=== PATIENT | female | born 1975 | race Caucasian/White ===

== ENCOUNTER 2018-02-05 18:16 | Inpatient (IN) | payer OTHER ==
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
[2018-02-05] MEDS ORDERED: ceFAZolin 1 GM in Premix Bag 1 BAG IV ONE (18:21)
[2018-02-05] MEDS ORDERED: Diphtheria,Pertussis(Acell),Tetanus Vaccine 0.5 ML Syringe IM ONE (18:21)
[2018-02-05] MEDS ORDERED: Iopamidol 755 MG/ML 200 ML Multipack Bottle IVPUSH ONE (18:31)
[2018-02-05 18:44] LABS: CHLORIDE,CL 103 mmol/L (98-107); SODIUM,NA 137 mmol/L (136-145)
[2018-02-05] MEDS ORDERED: Lactated Ringers 1,000 ML IV ONE (18:50)
[2018-02-05] MEDS ORDERED: Ketorolac 30 MG/ML SDV IVPUSH ONE (19:00)
[2018-02-05] MEDS ORDERED: Ondansetron 4 MG/2 ML SDV IVPUSH ONE (19:15)
[2018-02-05] MEDS ORDERED: Diazepam 2 MG Tab PO ONE (19:31)
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
[2018-02-05] MEDS ORDERED: traMADol 50 MG Tab PO PRN (21:21)
[2018-02-05] MEDS: Morphine 2 MG/ML Syringe IVPUSH PRN (21:38)
[2018-02-05] MEDS: Lactated Ringers 1,000 ML IV SCH (21:50)
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
[2018-02-06] MEDS: Morphine 2 MG/ML Syringe IVPUSH PRN ×4 (00:08→11:22)
[2018-02-06] MEDS: Lactated Ringers 1,000 ML IV SCH (09:22)
--- NOTE | 2018-02-06 10:06 | PCM.SURGPN ---
- General Info Date of Service: 02/06/18 Functional Status: Reports: Pain Controlled (contact psych; pt wants to leave [facility], was smile at first, became biligerent when told about transfer to psych) - Patient Data Vitals - Most Recent: Last Vital Signs Temp 98.1 F 02/06/18 08:00 Pulse 79 02/06/18 07:00 Resp 12 02/06/18 07:00 BP 108/55 L 02/06/18 07:00 Pulse Ox 99 02/06/18 07:00 Weight - Most Recent: 155 lb I&O - Last 24 Hours: Intake & Output 02/05/18 02/06/18 02/06/18 22:59 06:59 14:59 Intake Total 1050 1704 500 Output Total 400 Balance 1050 1304 500 Lab Results Last 24 Hrs: Laboratory Results - last 24 hr 02/05/18 02/05/18 02/05/18 Range/Units 18:11 18:11 22:38 WBC 7.11 (4.0-11.0) K/uL RBC 4.78 (4.30-5.90) M/uL Hgb 15.0 (12.0-16.0) g/dL Hct 42.0 (36.0-46.0) % MCV 87.9 (80.0-98.0) fL MCH 31.4 (27.0-32.0) pg MCHC 35.7 (31.0-37.0) g/dL RDW Std Deviation 41.4 (28.0-62.0) fl RDW Coeff of Candice 13 (11.0-15.0) % Plt Count 282 (150-400) K/uL MPV 10.00 (7.40-12.00) fL Neut % (Auto) 46.1 L (48.0-80.0) % Lymph % (Auto) 39.9 (16.0-40.0) % [place] % (Auto) 13.6 (0.0-15.0) % Eos % (Auto) 0.1 (0.0-7.0) % Baso % (Auto) 0.3 (0.0-1.5) % Neut # (Auto) 3.3 (1.4-5.7) K/uL Lymph # (Auto) 2.8 H (0.6-2.4) K/uL [place] # (Auto) 1.0 H (0.0-0.8) K/uL Eos # (Auto) 0.0 (0.0-0.7) K/uL Baso # (Auto) 0.0 (0.0-0.1) K/uL Nucleated RBC % 0.0 /100WBC Nucleated RBCs # 0 K/uL Sodium 137 (136-145) mmol/L Potassium 3.7 (3.5-5.1) mmol/L Chloride 103 (98-107) mmol/L Carbon Dioxide 24.7 (21.0-32.0) mmol/L BUN 12 (7.0-18.0) mg/dL Creatinine 1.1 H (0.6-1.0) mg/dL Est Cr Clr Drug Dosing 63.64 mL/min Estimated GFR (MDRD) 55.0 ml/min Glucose 127 H (74-106) mg/dL Calcium 9.5 (8.5-10.1) mg/dL Total Bilirubin 0.7 (0.2-1.0) mg/dL AST 21 (15-37) IU/L ALT 20 (14-63) IU/L Alkaline Phosphatase 63 (46-116) U/L Total Protein 7.8 (6.4-8.2) g/dL Albumin 4.2 (3.4-5.0) g/dL Globulin 3.6 H (2.0-3.5) g/dL Albumin/Globulin Ratio 1.2 L (1.3-2.8) Urine Color YELLOW Urine Appearance CLEAR Urine pH 5.5 (5.0-8.0) Ur Specific [place] 1.025 (1.001-1.035) Urine Protein NEGATIVE (NEGATIVE) mg/dL Urine Glucose (UA) NEGATIVE (NEGATIVE) mg/dL Urine Ketones NEGATIVE (NEGATIVE) mg/dL Urine Occult Blood TRACE-INTACT (NEGATIVE) Urine Nitrite NEGATIVE (NEGATIVE) Urine Bilirubin NEGATIVE (NEGATIVE) Urine Urobilinogen 0.2 (<2.0) EU/dL Ur Leukocyte Esterase NEGATIVE (NEGATIVE) Urine RBC 0-2 (0-2/HPF) Urine WBC 0-3 (0-5/HPF) Ur Epithelial Cells FEW (NONE-FEW) Urine Bacteria FEW (NEGATIVE) Fine Granular Casts 0-1 (NEGATIVE) Urine Mucus LIGHT (NONE-MOD) Urine HCG, Qual (NEGATIVE) Urine Opiates Screen (NEGATIVE) Ur Oxycodone Screen (NEGATIVE) Urine Methadone Screen (NEGATIVE) Ur Barbiturates Screen (NEGATIVE) Ur Phencyclidine Scrn (NEGATIVE) Ur Amphetamine Screen (NEGATIVE) U Methamphetamines Scrn (NEGATIVE) U Benzodiazepines Scrn (NEGATIVE) U Cocaine Metab Screen (NEGATIVE) U Marijuana (THC) Screen (NEGATIVE) Ethyl Alcohol < 3.0 mg/dL 02/05/18 02/05/18 Range/Units 22:38 22:38 WBC (4.0-11.0) K/uL RBC (4.30-5.90) M/uL Hgb (12.0-16.0) g/dL Hct (36.0-46.0) % MCV (80.0-98.0) fL MCH (27.0-32.0) pg MCHC (31.0-37.0) g/dL RDW Std Deviation (28.0-62.0) fl RDW Coeff of Candice (11.0-15.0) % Plt Count (150-400) K/uL MPV (7.40-12.00) fL Neut % (Auto) (48.0-80.0) % Lymph % (Auto) (16.0-40.0) % [place] % (Auto) (0.0-15.0) % Eos % (Auto) (0.0-7.0) % Baso % (Auto) (0.0-1.5) % Neut # (Auto) (1.4-5.7) K/uL Lymph # (Auto) (0.6-2.4) K/uL [place] # (Auto) (0.0-0.8) K/uL Eos # (Auto) (0.0-0.7) K/uL Baso # (Auto) (0.0-0.1) K/uL Nucleated RBC % /100WBC Nucleated RBCs # K/uL Sodium (136-145) mmol/L Potassium (3.5-5.1) mmol/L Chloride (98-107) mmol/L Carbon Dioxide (21.0-32.0) mmol/L BUN (7.0-18.0) mg/dL Creatinine (0.6-1.0) mg/dL Est Cr Clr Drug Dosing mL/min Estimated GFR (MDRD) ml/min Glucose (74-106) mg/dL Calcium (8.5-10.1) mg/dL Total Bilirubin (0.2-1.0) mg/dL AST (15-37) IU/L ALT (14-63) IU/L Alkaline Phosphatase (46-116) U/L Total Protein (6.4-8.2) g/dL Albumin (3.4-5.0) g/dL Globulin (2.0-3.5) g/dL Albumin/Globulin Ratio (1.3-2.8) Urine Color Urine Appearance Urine pH (5.0-8.0) Ur Specific [place] (1.001-1.035) Urine Protein (NEGATIVE) mg/dL Urine Glucose (UA) (NEGATIVE) mg/dL Urine Ketones (NEGATIVE) mg/dL Urine Occult Blood (NEGATIVE) Urine Nitrite (NEGATIVE) Urine Bilirubin (NEGATIVE) Urine Urobilinogen (<2.0) EU/dL Ur Leukocyte Esterase (NEGATIVE) Urine RBC (0-2/HPF) Urine WBC (0-5/HPF) Ur Epithelial Cells (NONE-FEW) Urine Bacteria (NEGATIVE) Fine Granular Casts (NEGATIVE) Urine Mucus (NONE-MOD) Urine HCG, Qual NEGATIVE (NEGATIVE) Urine Opiates Screen POSITIVE (NEGATIVE) Ur Oxycodone Screen NEGATIVE (NEGATIVE) Urine Methadone Screen NEGATIVE (NEGATIVE) Ur Barbiturates Screen NEGATIVE (NEGATIVE) Ur Phencyclidine Scrn NEGATIVE (NEGATIVE) Ur Amphetamine Screen NEGATIVE (NEGATIVE) U Methamphetamines Scrn POSITIVE (NEGATIVE) U Benzodiazepines Scrn POSITIVE (NEGATIVE) U Cocaine Metab Screen NEGATIVE (NEGATIVE) U Marijuana (THC) Screen POSITIVE (NEGATIVE) Ethyl Alcohol mg/dL Med Orders - Current: Current Medications Lactated Ringer's (Ringers, Lactated) 1,000 mls @ 100 mls/hr IV CONTINUOUS JENNIFER Last Admin: 02/06/18 09:22 Dose: 100 mls/hr Morphine Sulfate (Morphine) 2 mg IVPUSH Q2H PRN PRN Reason: pain Last Admin: 02/06/18 08:20 Dose: 2 mg Tramadol HCl (Ultram) 50 mg PO Q8H PRN PRN Reason: Pain Discontinued Medications Diazepam (Valium) 2 mg PO ONETIME ONE Stop: 02/05/18 19:32 Last Admin: 02/05/18 19:37 Dose: 2 mg Diphtheria/Tetanus/Acell Pertussis (Adacel) 0.5 ml IM .ONCE ONE Stop: 02/05/18 18:22 Last Admin: 02/05/18 18:51 Dose: 0.5 ml Cefazolin Sodium/Dextrose 1 gm (/ Premix) 50 mls @ 100 mls/hr IV ONETIME ONE Stop: 02/05/18 18:50 Last Admin: 02/05/18 18:51 Dose: 100 mls/hr Lactated Ringer's (Ringers, Lactated) 1,000 mls @ 999 mls/hr IV .BOLUS ONE Stop: 02/05/18 19:50 Last Admin: 02/05/18 18:52 Dose: 999 mls/hr Iopamidol (Isovue Multipack-370 (76%)) 66 ml IVPUSH ONETIME ONE Stop: 02/05/18 18:32 Last Admin: 02/05/18 19:09 Dose: 66 ml Ketorolac Tromethamine (Toradol) 30 mg IVPUSH ONETIME ONE Stop: 02/05/18 19:01 Last Admin: 02/05/18 19:09 Dose: 30 mg Ondansetron HCl (Zofran) 4 mg IVPUSH ONETIME ONE Stop: 02/05/18 19:16 Last Admin: 02/05/18 19:19 Dose: 4 mg - Exam GI/Abdominal Exam: Soft, Non-Tender - Problem List Review Problem List Initiated/Reviewed/Updated: Yes - My Orders Last 24 Hours: Active Orders 24 hr Category Date Time Status Admission Status [Patient Status] [ADT] Routine ADT 02/05/18 19:54 Active EKG 12 Lead [EKG Documentation Completion] [RC] STAT Care 02/05/18 18:19 Active Consult to Physician [CONS] Routine Cons 02/05/18 19:56 Active Consult to Physician [CONS] Stat Cons 02/05/18 20:08 Active Clear Liquid Diet [DIET] Diet 02/06/18 Breakfast Active Abdomen Pelvis w Cont [CT] Stat Exams 02/05/18 18:19 Taken Chest 1V Frontal [CR] Stat Exams 02/05/18 18:19 Taken DRUG SCREEN, URINE [URCHEM] Stat Lab 02/05/18 22:38 Ordered HCG QUALITATIVE,URINE [URCHEM] Stat Lab 02/05/18 22:38 Ordered UA W/MICROSCOPIC [URIN] Stat Lab 02/05/18 22:38 Ordered Lactated Ringers [Ringers, Lactated] 1,000 ml Med 02/05/18 21:45 Active IV CONTINUOUS Morphine Med 02/05/18 21:27 Active 2 mg IVPUSH Q2H PRN traMADol [Ultram] Med 02/05/18 21:21 Active 50 mg PO Q8H PRN One To One Therapy [BH] Stat Oth 02/05/18 20:16 Ordered Medication Orders Lactated Ringer's (Ringers, Lactated) 1,000 mls @ 100 mls/hr IV CONTINUOUS JENNIFER Last Admin: 02/06/18 09:22 Dose: 100 mls/hr Infusion: 02/06/18 07:50 Dose: 100 mls/hr Admin: 02/05/18 21:50 Dose: 100 mls/hr Morphine Sulfate (Morphine) 2 mg IVPUSH Q2H PRN PRN Reason: pain Last Admin: 02/06/18 08:20 Dose: 2 mg Admin: 02/06/18 05:00 Dose: 2 mg Admin: 02/06/18 00:08 Dose: 2 mg Admin: 02/05/18 21:38 Dose: 2 mg Tramadol HCl (Ultram) 50 mg PO Q8H PRN PRN Reason: Pain - Assessment Assessment (Free Text/Narrative):: doing well from surg stand point, discuss transfer to psych; thanks for hospitalist input - Plan Plan (Free Text/Narrative):: doing well from surg stand point, discuss transfer to psych; thanks for hospitalist input
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
== END 2018-02-06 12:30 | disposition left against medical advice (07) | DRG 605 ==
LOC: MW.ED 18:16 → MW.ICU 19:30 → OBSVTOIN 19:54 → MW.ICU 19:55
PROVIDERS: ADMIT Surgery; ATTEND Surgery
DX: S31.119A Laceration without foreign body of abdominal wall, unspecified quadrant without penetration into peritoneal cavity, initial encounter (principal); X78.1XXA Intentional self-harm by knife, initial encounter; F43.10 Post-traumatic stress disorder, unspecified; G89.29 Other chronic pain; F41.9 Anxiety disorder, unspecified; F32.9 Major depressive disorder, single episode, unspecified; F12.10 Cannabis abuse, uncomplicated; K31.84 Gastroparesis; M19.90 Unspecified osteoarthritis, unspecified site; E03.9 Hypothyroidism, unspecified; G43.909 Migraine, unspecified, not intractable, without status migrainosus; F17.200 Nicotine dependence, unspecified, uncomplicated; Z87.820 Personal history of traumatic brain injury; Z91.19 Patient's noncompliance with other medical treatment and regimen; Z79.899 Other long term (current) drug therapy; Z90.49 Acquired absence of other specified parts of digestive tract
CPT/HCPCS: 36415; 71045; 71045-26; 74177; 74177-26; 80053; 80305-QW; 81001; 81025; 85025; 90471; 90715; 93005; 96365; 96368; 96375; 99285-25; A9270-GY; G0390; G0480; J0690; J1885; J2270; J2405; J7120; Q9967

== ENCOUNTER 2018-02-14 15:11 | Emergency (ER) | payer OTHER ==
[2018-02-14] MEDS ORDERED: Sodium Chloride 0.9% 2.5 ML Syringe FLUSH PRN (15:15)
[2018-02-14] MEDS ORDERED: Sodium Chloride 0.9% 10 ML Syringe FLUSH PRN (15:15)
[2018-02-14] MEDS ORDERED: Ketorolac 30 MG/ML SDV IVPUSH ONE (16:06)
[2018-02-14] MEDS ORDERED: Sodium Chloride 0.9% 1,000 ML IV ONE ×2 (16:06→16:39)
[2018-02-14] MEDS ORDERED: cefTRIAXone 1 GM in Premix Bag 1 BAG IV ONE (16:21)
[2018-02-14] MEDS ORDERED: Potassium Chloride 20 MEQ Tab.ER PO ONE (16:22)
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
[2018-02-14] MEDS ORDERED: Ondansetron 4 MG/2 ML SDV IVPUSH ONE (16:40)
[2018-02-14] MEDS ORDERED: Morphine 2 MG/ML Syringe IVPUSH ONE ×2 (16:40→18:35)
[2018-02-14] MEDS ORDERED: Hyoscyamine 0.125 MG Tab.SL SL ONE (16:57)
[2018-02-14] MEDS ORDERED: Hyoscyamine 0.125 MG Tab.SL ONE (17:08)
[2018-02-14] MEDS ORDERED: Iopamidol 755 Mg/ML 100 ML Bottle IVPUSH ONE (17:46)
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
--- NOTE | 2018-02-15 09:04 | US ---
EXAM DATE: 02/14/18 PATIENT'S AGE: 42 Patient: BELKYS SHETTY Facility: [place], [place] Site . Site : 1975 Study: US Pelvis [id number]/10/2018 6:30:28 PM Ordering Physician: Gustabo Cordoba Final Report: INDICATION: Left lower quadrant pain TECHNIQUE: Ultrasound pelvis transabdominal and transvaginal. Endovaginal imaging was performed to better visualize the endometrium and ovaries. Real- time medrano scale sonographic images with spectral and color Doppler imaging of the ovaries were obtained. COMPARISON: CT today FINDINGS: Uterus: 7.7 x 4.3 x 6 cm. There is a subserosal fibroid along the anterior fundus measuring 1.4 cm. A heterogeneous region of echotexture seen along the right aspect of the uterus which may represent a fibroid measuring 6 x 4.3 cm. Endometrium: 10 mm. No sign of endometrial mass or fluid present. Right ovary: 3 x 1.7 x 2.9 cm. The right ovary is normal in appearance and echotexture. Arterial blood flow seen within the right ovary. Left ovary: 2 x 1.7 x 1.8 cm. The left ovary is normal in appearance and echotexture. Arterial blood flow seen within the left ovary. Cul-de-sac: Trace pelvic ascites is noted. IMPRESSION: 1. Uterine fibroids are present measuring up to 6 cm. Dictated by Lucio Díaz MD @ 02/14/2018 6:51:44 PM Dictated by: Lucio Díaz MD @ 02/14/2018 18:51:57 (Electronic Signature) Report Signed by Proxy. MARK
== END 2018-02-14 19:28 | disposition home or self-care (01) ==
LOC: MW.ED 15:11
DX: N10 Acute pyelonephritis (principal); N83.201 Unspecified ovarian cyst, right side; S30.1XXA Contusion of abdominal wall, initial encounter; F17.210 Nicotine dependence, cigarettes, uncomplicated; X58.XXXA Exposure to other specified factors, initial encounter
CPT/HCPCS: 36415; 74177; 76856; 80053; 81001; 81025; 83605; 85025; 96361; 96365; 96375; 96376; 99284; A9270; J0696; J1885; J2270; J2405; J7040; Q9967

== ENCOUNTER 2018-02-16 18:59 | Observation (INO) | payer OTHER ==
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
[2018-02-16] MEDS ORDERED: Sodium Chloride 0.9% 10 ML Syringe FLUSH PRN (19:43)
[2018-02-16] MEDS ORDERED: Ketorolac 30 MG/ML SDV IVPUSH ONE (19:45)
[2018-02-16] MEDS ORDERED: Sodium Chloride 0.9% 1,000 ML IV ONE (19:45)
[2018-02-16] MEDS ORDERED: Acetaminophen 650 MG Supp RECTAL ONE (19:45)
[2018-02-16] MEDS ORDERED: Ondansetron 4 MG/2 ML SDV IVPUSH ONE ×2 (19:45→21:00)
[2018-02-16] MEDS ORDERED: Morphine 2 MG/ML Syringe IVPUSH ONE ×2 (19:46→20:56)
[2018-02-16] MEDS ORDERED: Levofloxacin/Dextrose 5%-Water 500 MG in Premix Bag 1 BAG IV ONE (19:46)
[2018-02-16] MEDS ORDERED: LORazepam 2 MG/ML SDV IVPUSH ONE (20:59)
[2018-02-16 21:24] LABS: CHLORIDE,CL 95 mmol/L (98-107); SODIUM,NA 132 mmol/L (136-145)
[2018-02-16] MEDS ORDERED: Metoclopramide 10 MG/2 ML SDV IV ONE (21:44)
[2018-02-16] MEDS ORDERED: diphenhydrAMINE 50 MG/ML SDV IVPUSH ONE (21:44)
[2018-02-16] MEDS: Sodium Chloride 0.9% 1,000 ML IV SCH (21:50)
[2018-02-17] MEDS: Morphine 2 MG/ML Syringe IVPUSH PRN ×6 (00:42→23:23)
--- NOTE | 2018-02-17 07:37 | PCM.PN ---
- Patient Data Vitals - Most Recent: Last Vital Signs Temp 98.6 F 02/17/18 04:53 Pulse 79 02/17/18 04:53 Resp 16 02/17/18 04:53 BP 88/54 L 02/17/18 04:53 Pulse Ox 98 02/17/18 04:53 Weight - Most Recent: 65.363 kg I&O - Last 24 Hours: Intake & Output 02/16/18 02/17/18 02/17/18 22:59 06:59 14:59 Intake Total 120 Output Total 250 Balance -130 Lab Results Last 24 Hours: Laboratory Results - last 24 hr 02/16/18 02/16/18 02/16/18 Range/Units 19:44 20:08 20:08 WBC (4.0-11.0) K/uL RBC (4.30-5.90) M/uL Hgb (12.0-16.0) g/dL Hct (36.0-46.0) % MCV (80.0-98.0) fL MCH (27.0-32.0) pg MCHC (31.0-37.0) g/dL RDW Std Deviation (28.0-62.0) fl RDW Coeff of Candice (11.0-15.0) % Plt Count (150-400) K/uL MPV (7.40-12.00) fL Neut % (Auto) (48.0-80.0) % Lymph % (Auto) (16.0-40.0) % [place] % (Auto) (0.0-15.0) % Eos % (Auto) (0.0-7.0) % Baso % (Auto) (0.0-1.5) % Neut # (Auto) (1.4-5.7) K/uL Lymph # (Auto) (0.6-2.4) K/uL [place] # (Auto) (0.0-0.8) K/uL Eos # (Auto) (0.0-0.7) K/uL Baso # (Auto) (0.0-0.1) K/uL Nucleated RBC % /100WBC Nucleated RBCs # K/uL Lactate (0.20-2.00) mmol/L Sodium (136-145) mmol/L Potassium (3.5-5.1) mmol/L Chloride (98-107) mmol/L Carbon Dioxide (21.0-32.0) mmol/L BUN (7.0-18.0) mg/dL Creatinine (0.6-1.0) mg/dL Est Cr Clr Drug Dosing mL/min Estimated GFR (MDRD) ml/min Glucose (74-106) mg/dL Calcium (8.5-10.1) mg/dL Magnesium (1.8-2.4) mg/dL Total Bilirubin (0.2-1.0) mg/dL AST (15-37) IU/L ALT (14-63) IU/L Alkaline Phosphatase (46-116) U/L Total Protein (6.4-8.2) g/dL Albumin (3.4-5.0) g/dL Globulin (2.0-3.5) g/dL Albumin/Globulin Ratio (1.3-2.8) Lipase (73-393) U/L Urine Color YELLOW Urine Appearance CLEAR Urine pH 6.5 (5.0-8.0) Ur Specific [place] <= 1.005 (1.001-1.035) Urine Protein NEGATIVE (NEGATIVE) mg/dL Urine Glucose (UA) NEGATIVE (NEGATIVE) mg/dL Urine Ketones 15 H (NEGATIVE) mg/dL Urine Occult Blood TRACE-INTACT (NEGATIVE) Urine Nitrite NEGATIVE (NEGATIVE) Urine Bilirubin NEGATIVE (NEGATIVE) Urine Urobilinogen 2.0 H (<2.0) EU/dL Ur Leukocyte Esterase TRACE (NEGATIVE) Urine RBC 0-2 (0-2/HPF) Urine WBC 2-6 (0-5/HPF) Ur Epithelial Cells FEW (NONE-FEW) Urine Bacteria FEW (NEGATIVE) Urine Mucus FEW (NONE-MOD) Urine HCG, Qual NEGATIVE (NEGATIVE) Urine Opiates Screen NEGATIVE (NEGATIVE) Ur Oxycodone Screen NEGATIVE (NEGATIVE) Urine Methadone Screen NEGATIVE (NEGATIVE) Ur Barbiturates Screen NEGATIVE (NEGATIVE) Ur Phencyclidine Scrn NEGATIVE (NEGATIVE) Ur Amphetamine Screen NEGATIVE (NEGATIVE) U Methamphetamines Scrn NEGATIVE (NEGATIVE) U Benzodiazepines Scrn NEGATIVE (NEGATIVE) U Cocaine Metab Screen NEGATIVE (NEGATIVE) U Marijuana (THC) Screen POSITIVE (NEGATIVE) 02/16/18 02/16/18 02/16/18 Range/Units 20:23 20:23 20:23 WBC 9.49 (4.0-11.0) K/uL RBC 3.76 L (4.30-5.90) M/uL Hgb 11.4 L (12.0-16.0) g/dL Hct 32.1 L (36.0-46.0) % MCV 85.4 (80.0-98.0) fL MCH 30.3 (27.0-32.0) pg MCHC 35.5 (31.0-37.0) g/dL RDW Std Deviation 39.9 (28.0-62.0) fl RDW Coeff of Candice 13 (11.0-15.0) % Plt Count 287 (150-400) K/uL MPV 10.60 (7.40-12.00) fL Neut % (Auto) 76.2 (48.0-80.0) % Lymph % (Auto) 12.6 L (16.0-40.0) % [place] % (Auto) 10.9 (0.0-15.0) % Eos % (Auto) 0.2 (0.0-7.0) % Baso % (Auto) 0.1 (0.0-1.5) % Neut # (Auto) 7.2 H (1.4-5.7) K/uL Lymph # (Auto) 1.2 (0.6-2.4) K/uL [place] # (Auto) 1.0 H (0.0-0.8) K/uL Eos # (Auto) 0.0 (0.0-0.7) K/uL Baso # (Auto) 0.0 (0.0-0.1) K/uL Nucleated RBC % 0.0 /100WBC Nucleated RBCs # 0 K/uL Lactate 1.3 (0.20-2.00) mmol/L Sodium 132 L (136-145) mmol/L Potassium 2.9 L (3.5-5.1) mmol/L Chloride 95 L (98-107) mmol/L Carbon Dioxide 24.7 (21.0-32.0) mmol/L BUN 8 (7.0-18.0) mg/dL Creatinine 1.0 (0.6-1.0) mg/dL Est Cr Clr Drug Dosing 61.86 mL/min Estimated GFR (MDRD) > 60.0 ml/min Glucose 87 (74-106) mg/dL Calcium 8.8 (8.5-10.1) mg/dL Magnesium (1.8-2.4) mg/dL Total Bilirubin 0.8 (0.2-1.0) mg/dL AST 19 (15-37) IU/L ALT 29 (14-63) IU/L Alkaline Phosphatase 156 H (46-116) U/L Total Protein 6.7 (6.4-8.2) g/dL Albumin 2.8 L (3.4-5.0) g/dL Globulin 3.9 H (2.0-3.5) g/dL Albumin/Globulin Ratio 0.7 L (1.3-2.8) Lipase 54 L (73-393) U/L Urine Color Urine Appearance Urine pH (5.0-8.0) Ur Specific [place] (1.001-1.035) Urine Protein (NEGATIVE) mg/dL Urine Glucose (UA) (NEGATIVE) mg/dL Urine Ketones (NEGATIVE) mg/dL Urine Occult Blood (NEGATIVE) Urine Nitrite (NEGATIVE) Urine Bilirubin (NEGATIVE) Urine Urobilinogen (<2.0) EU/dL Ur Leukocyte Esterase (NEGATIVE) Urine RBC (0-2/HPF) Urine WBC (0-5/HPF) Ur Epithelial Cells (NONE-FEW) Urine Bacteria (NEGATIVE) Urine Mucus (NONE-MOD) Urine HCG, Qual (NEGATIVE) Urine Opiates Screen (NEGATIVE) Ur Oxycodone Screen (NEGATIVE) Urine Methadone Screen (NEGATIVE) Ur Barbiturates Screen (NEGATIVE) Ur Phencyclidine Scrn (NEGATIVE) Ur Amphetamine Screen (NEGATIVE) U Methamphetamines Scrn (NEGATIVE) U Benzodiazepines Scrn (NEGATIVE) U Cocaine Metab Screen (NEGATIVE) U Marijuana (THC) Screen (NEGATIVE) 02/16/18 Range/Units 20:23 WBC (4.0-11.0) K/uL RBC (4.30-5.90) M/uL Hgb (12.0-16.0) g/dL Hct (36.0-46.0) % MCV (80.0-98.0) fL MCH (27.0-32.0) pg MCHC (31.0-37.0) g/dL RDW Std Deviation (28.0-62.0) fl RDW Coeff of Candice (11.0-15.0) % Plt Count (150-400) K/uL MPV (7.40-12.00) fL Neut % (Auto) (48.0-80.0) % Lymph % (Auto) (16.0-40.0) % [place] % (Auto) (0.0-15.0) % Eos % (Auto) (0.0-7.0) % Baso % (Auto) (0.0-1.5) % Neut # (Auto) (1.4-5.7) K/uL Lymph # (Auto) (0.6-2.4) K/uL [place] # (Auto) (0.0-0.8) K/uL Eos # (Auto) (0.0-0.7) K/uL Baso # (Auto) (0.0-0.1) K/uL Nucleated RBC % /100WBC Nucleated RBCs # K/uL Lactate (0.20-2.00) mmol/L Sodium (136-145) mmol/L Potassium (3.5-5.1) mmol/L Chloride (98-107) mmol/L Carbon Dioxide (21.0-32.0) mmol/L BUN (7.0-18.0) mg/dL Creatinine (0.6-1.0) mg/dL Est Cr Clr Drug Dosing mL/min Estimated GFR (MDRD) ml/min Glucose (74-106) mg/dL Calcium (8.5-10.1) mg/dL Magnesium 1.9 (1.8-2.4) mg/dL Total Bilirubin (0.2-1.0) mg/dL AST (15-37) IU/L ALT (14-63) IU/L Alkaline Phosphatase (46-116) U/L Total Protein (6.4-8.2) g/dL Albumin (3.4-5.0) g/dL Globulin (2.0-3.5) g/dL Albumin/Globulin Ratio (1.3-2.8) Lipase (73-393) U/L Urine Color Urine Appearance Urine pH (5.0-8.0) Ur Specific [place] (1.001-1.035) Urine Protein (NEGATIVE) mg/dL Urine Glucose (UA) (NEGATIVE) mg/dL Urine Ketones (NEGATIVE) mg/dL Urine Occult Blood (NEGATIVE) Urine Nitrite (NEGATIVE) Urine Bilirubin (NEGATIVE) Urine Urobilinogen (<2.0) EU/dL Ur Leukocyte Esterase (NEGATIVE) Urine RBC (0-2/HPF) Urine WBC (0-5/HPF) Ur Epithelial Cells (NONE-FEW) Urine Bacteria (NEGATIVE) Urine Mucus (NONE-MOD) Urine HCG, Qual (NEGATIVE) Urine Opiates Screen (NEGATIVE) Ur Oxycodone Screen (NEGATIVE) Urine Methadone Screen (NEGATIVE) Ur Barbiturates Screen (NEGATIVE) Ur Phencyclidine Scrn (NEGATIVE) Ur Amphetamine Screen (NEGATIVE) U Methamphetamines Scrn (NEGATIVE) U Benzodiazepines Scrn (NEGATIVE) U Cocaine Metab Screen (NEGATIVE) U Marijuana (THC) Screen (NEGATIVE) Med Orders - Current: Current Medications Potassium Chloride 20 meq/ (Sodium Chloride) 260 mls @ 130 mls/hr IV ASDIRECTED JENNIFER Last Admin: 02/17/18 00:48 Dose: 130 mls/hr Sodium Chloride (Normal Saline) 1,000 mls @ 150 mls/hr IV ASDIRECTED [facility] Last Admin: 02/16/18 21:50 Dose: 150 mls/hr Morphine Sulfate (Morphine) 2 mg IVPUSH Q4H PRN PRN Reason: Pain Last Admin: 02/17/18 06:47 Dose: 2 mg Sodium Chloride (Saline Flush) 10 ml FLUSH ASDIRECTED PRN PRN Reason: Keep Vein Open Sodium Chloride (Saline Flush) 2.5 ml FLUSH ASDIRECTED PRN PRN Reason: Keep Vein Open Discontinued Medications Acetaminophen (Tylenol) 650 mg RECTAL NOW ONE Stop: 02/16/18 19:46 Last Admin: 02/16/18 20:13 Dose: 650 mg Diphenhydramine HCl (Benadryl) 50 mg IVPUSH ONETIME ONE Stop: 02/16/18 21:45 Last Admin: 02/16/18 21:51 Dose: 50 mg Sodium Chloride (Normal Saline) 1,000 mls @ 999 mls/hr IV STAT ONE Stop: 02/16/18 20:45 Last Admin: 02/16/18 20:21 Dose: 999 mls/hr Levofloxacin/Dextrose 500 mg/ (Premix) 100 mls @ 100 mls/hr IV ONETIME ONE Stop: 02/16/18 20:45 Last Admin: 02/16/18 20:23 Dose: 100 mls/hr Influenza Virus Vaccine (Pharmacy To Dose - Influenza Vaccine) 1 each IM ONETIME ONE Stop: 02/17/18 04:04 Ketorolac Tromethamine (Toradol) 30 mg IVPUSH ONETIME ONE Stop: 02/16/18 19:46 Last Admin: 02/16/18 20:25 Dose: 30 mg Lorazepam (Ativan) 1 mg IVPUSH ONETIME ONE Stop: 02/16/18 21:00 Last Admin: 02/16/18 21:08 Dose: 1 mg Metoclopramide HCl (Reglan) 10 mg IV ONETIME ONE Stop: 02/16/18 21:45 Last Admin: 02/16/18 21:53 Dose: 10 mg Morphine Sulfate (Morphine) 4 mg IVPUSH ONETIME ONE Stop: 02/16/18 19:47 Last Admin: 02/16/18 20:26 Dose: 4 mg Morphine Sulfate (Morphine) 4 mg IVPUSH ONETIME ONE Stop: 02/16/18 20:57 Last Admin: 02/16/18 21:06 Dose: 4 mg Ondansetron HCl (Zofran) 4 mg IVPUSH ONETIME ONE Stop: 02/16/18 19:46 Last Admin: 02/16/18 20:24 Dose: 4 mg Ondansetron HCl (Zofran) 4 mg IVPUSH ONETIME ONE Stop: 02/16/18 21:01 Last Admin: 02/16/18 21:04 Dose: 4 mg
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
[2018-02-17] MEDS: Acetaminophen 325 MG Tab PO PRN ×4 (09:05→23:27)
[2018-02-17] MEDS: Ondansetron 4 MG/2 ML SDV IVPUSH PRN ×2 (09:25→22:00)
[2018-02-17] MEDS: Enoxaparin 40 MG/0.4 ML Syringe SUBCUT SCH (09:27)
[2018-02-17 09:43] LABS: CHLORIDE,CL 100 mmol/L (98-107); SODIUM,NA 134 mmol/L (136-145)
[2018-02-17] MEDS ORDERED: Levofloxacin/Dextrose 5%-Water 750 MG in Premix Bag 1 BAG IV SCH (10:15)
[2018-02-17] MEDS: Sodium Chloride 0.9% 2.5 ML Syringe FLUSH PRN ×2 (10:39→14:57)
[2018-02-17] MEDS ORDERED: Iopamidol 755 MG/ML 500 ML Multipack Bottle IVPUSH STA (11:51)
--- NOTE | 2018-02-17 13:12 | CT ---
CT of the abdomen and pelvis with and without contrast. HISTORY: Left flank pain TECHNIQUE: Axial CT images were obtained of the abdomen and pelvis before and following administratio n of 100 mL of Isovue-370 in the left antecubital fossa without complication. Coronal and sagittal re constructions obtained. FINDINGS: The lung bases are clear, no pleural effusion. There is a calcified granuloma within the spleen. Otherwise The liver, spleen, adrenal glands, pancre as appear normal. No bulky retroperitoneal lymphadenopathy or abdominal ascites. There is a linear 2 by approximately 4 cm soft tissue area within the upper right abdomen. This is similar to the previou s examination There is heterogeneous enhancement of the left kidney which appears swollen. There is periureteral an d peripelvic stranding without evidence of obstructive uropathy. The right kidney enhances and appear s otherwise normal. The large and small bowel are normal in caliber without evidence of obstruction. No focal pericolonic inflammation or stranding. The appendix is normal. There is likely a 1.7 cm fibroid within the anter ior uterus. The urinary bladder appears grossly unremarkable. Trace free pelvic fluid. No bulky pelvi c lymphadenopathy. No free air noted. No suspicious osseous abnormalities identified. IMPRESSION: 1. Enlarged heterogeneously enhancing left kidney consistent with pyelonephritis. 2. Right ventral subcutaneous hematoma. 3. Probable small anterior uterine fibroid. 4. Cholecystectomy.
[2018-02-17] MEDS: Sodium Chloride 0.9% 1,000 ML IV SCH ×2 (15:04→23:22)
[2018-02-17] MEDS ORDERED: Nicotine 14 MG/24 Hr Patch TRDERM SCH (18:00)
[2018-02-17] MEDS: Docusate Sodium 100 MG Cap PO PRN (18:11)
[2018-02-17] MEDS: Levofloxacin/Dextrose 5%-Water 750 MG in Premix Bag 1 BAG IV SCH (19:00)
[2018-02-18] MEDS: Acetaminophen 325 MG Tab PO PRN ×2 (03:42→08:17)
[2018-02-18] MEDS: Morphine 2 MG/ML Syringe IVPUSH PRN ×2 (03:42→07:48)
[2018-02-18 05:42] LABS: CHLORIDE,CL 106 mmol/L (98-107); SODIUM,NA 140 mmol/L (136-145)
[2018-02-18] MEDS: Sodium Chloride 0.9% 1,000 ML IV SCH ×3 (06:08→20:12)
[2018-02-18] MEDS ORDERED: Potassium Chloride 20 MEQ Tab.ER PO ONE ×2 (07:30→11:16)
[2018-02-18] MEDS: Enoxaparin 40 MG/0.4 ML Syringe SUBCUT SCH (08:18)
[2018-02-18] MEDS: Ondansetron 4 MG/2 ML SDV IVPUSH PRN (08:29)
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
[2018-02-18] MEDS ORDERED: Potassium Chloride 20 MEQ Tab.ER ONE (09:17)
[2018-02-18] MEDS: oxyCODONE 5 MG Tab PO PRN ×2 (11:49→17:38)
[2018-02-18] MEDS ORDERED: Nicotine Polacrilex 2 MG Gum CHEW PRN (16:23)
[2018-02-18] MEDS: Nicotine Polacrilex 2 MG Gum CHEW PRN (18:27)
[2018-02-18] MEDS: Levofloxacin/Dextrose 5%-Water 750 MG in Premix Bag 1 BAG IV SCH (20:15)
[2018-02-18] MEDS: Docusate Sodium 100 MG Cap PO PRN (20:25)
[2018-02-19] MEDS: oxyCODONE 5 MG Tab PO PRN ×2 (02:08→08:08)
[2018-02-19] MEDS: Sodium Chloride 0.9% 1,000 ML IV SCH ×2 (04:08→10:48)
[2018-02-19 07:29] LABS: CHLORIDE,CL 107 mmol/L (98-107); SODIUM,NA 138 mmol/L (136-145)
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
[2018-02-19] MEDS: Enoxaparin 40 MG/0.4 ML Syringe SUBCUT SCH (09:13)
[2018-02-19] MEDS: Nicotine Polacrilex 2 MG Gum CHEW PRN (09:44)
--- NOTE | 2018-02-19 12:12 | PCM.DCSUM1 ---
<Autumn Morgan - Last Filed: 02/19/18 12:47> Discharge Summary - Hospital Course HPI Initial Comments: Admission Date:02/16/18 Discharge Date: 02/19/18 Admission Diagnosis: 1. Pyelonephritis 2. Hypokalemia Discharge Diagnosis: 1. Pyelonephritis 2. Hypokalemia- resolved Procedures: None Consults: None Hospital Course: The patient is a 42-year-old female who presented to the ER with fever and left-sided flank and abdominal pain. The patient had previously been diagnosed with pyelonephritis on February 14 and sent home on oral antibiotics. At home she was unable to tolerate by mouth so she was unable to take her antibiotics or antipyretics. In the ER, they did initial lab work that showed no white count. Blood cultures were negative. She didn't grow anything in her urine. Her lactate was normal, but she was found to be hypokalemic. She was admitted to the medical floor for observation. She was started on IV Levaquin for the infection, morphine to control pain and Tylenol for fever. The pain medicine was transitioned to oral oxycodone, once she coud tolerate by mouth intake. She has been afebrile for the past 2 days and her symptoms have improved. Her potassium was replaced and her hypokalemia resolved. We did get a repeat CT scan on the day of admission that showed signs of pyelonephritis. The patient also reported that she has been fighting with her , so social work instructor spoke to her and give her resources about the family crisis center, [facility] walk-in clinic, and the 24-hour crisis hotline. By day of discharge, the patient wanted to go home. Disposition: Home Discharge Condition: vitals stable, tolerating oral diet, ambulating without difficulty, symptom improvement Discharge Instructions: regular diet as tolerated, activity as tolerated, symptoms to report to physician includes fever/chills, swelling, discharge, chest pain, shortness of breath, or abdominal pain. Discharge Medications: Home Medication: traMADol HCl [Tramadol HCl] 50 mg PO Q6H PRN #16 tablet New Medication: Levofloxacin [Levaquin] 750 mg PO DAILY 10 Days #10 tablet 02/19/18 [Rx] Follow-up: Dr. Zaragoza, PCP, on 03/07/18 Diagnosis: Stroke: No - Discharge Data Discharge Date: 02/19/18 Discharge Disposition: Home, Self-Care 01 Condition: Stable - Patient Instructions Diet: Regular Diet as Tolerated Activity: As Tolerated Driving: May Drive Today Showering/Bathing: May Shower Notify Provider of: Fever, Increased Pain, Swelling and Redness, Drainage, Nausea and/or Vomiting Other/Special Instructions: Additional symptoms include chest pain, abdominal pain, or shortness of breath. - Discharge Plan Prescriptions/Med Rec: Levofloxacin [Levaquin] 750 mg PO DAILY 10 Days #10 tablet Home Medications: Home Meds traMADol HCl [Tramadol HCl] 50 mg PO Q6H PRN #16 tablet 02/14/18 [Rx] Levofloxacin [Levaquin] 750 mg PO DAILY 10 Days #10 tablet 02/19/18 [Rx] Patient Handouts: Pyelonephritis, Adult, [id number], Levofloxacin tablets Referrals: Alex Zaragoza MD [Ordering Only Provider] - 03/07/18 2:30 pm - Patient Data Vitals - Most Recent: Last Vital Signs Temp 97.9 F 02/19/18 08:00 Pulse 84 02/19/18 08:00 Resp 18 02/19/18 08:00 BP 135/85 02/19/18 08:00 Pulse Ox 99 02/19/18 08:00 Weight - Most Recent: 65.363 kg I&O - Last 24 hours: Intake & Output 02/18/18 02/19/18 02/19/18 22:59 06:59 14:59 Intake Total 2450 2736 999 Output Total 900 2300 Balance 1550 436 999 Lab Results - Last 24 hrs: Laboratory Results - last 24 hr 02/19/18 02/19/18 Range/Units 06:01 06:01 WBC 8.30 (4.0-11.0) K/uL RBC 3.10 L (4.30-5.90) M/uL Hgb 9.3 L (12.0-16.0) g/dL Hct 27.2 L (36.0-46.0) % MCV 87.7 (80.0-98.0) fL MCH 30.0 (27.0-32.0) pg MCHC 34.2 (31.0-37.0) g/dL RDW Std Deviation 44.9 (28.0-62.0) fl RDW Coeff of Candice 14 (11.0-15.0) % Plt Count 332 (150-400) K/uL MPV 10.50 (7.40-12.00) fL Add Manual Diff YES Neutrophils % (Manual) 46 L (48.0-80.0) % Band Neutrophils % 7 % Lymphocytes % (Manual) 40 (16.0-40.0) % Monocytes % (Manual) 7 (0.0-15.0) % Nucleated RBC % 0.0 /100WBC Absolute Seg Neuts 3.8 (1.4-5.7) Band Neutrophils # 0.6 Lymphocytes # (Manual) 3.3 H (0.6-2.4) Monocytes # (Manual) 0.6 (0.0-0.8) Basophils # (Manual) 0.2 H (0.0-0.1) Nucleated RBCs # 0 K/uL Sodium 138 (136-145) mmol/L Potassium 4.1 (3.5-5.1) mmol/L Chloride 107 (98-107) mmol/L Carbon Dioxide 26.3 (21.0-32.0) mmol/L BUN 4 L (7.0-18.0) mg/dL Creatinine 0.8 (0.6-1.0) mg/dL Est Cr Clr Drug Dosing 77.30 mL/min Estimated GFR (MDRD) > 60.0 ml/min Glucose 99 (74-106) mg/dL Calcium 8.6 (8.5-10.1) mg/dL SALIMA Results - Last 24 hrs: Microbiology 02/16/18 20:08 Urine Culture - Final Urine, Clean Catch No Growth 02/16/18 20:35 Aerobic Blood Culture - Preliminary Blood - Venous - Lab Draw NO GROWTH AFTER 2 DAYS Anaerobic Blood Culture - Preliminary NO GROWTH AFTER 2 DAYS 02/16/18 20:23 Aerobic Blood Culture - Preliminary Blood - Venous NO GROWTH AFTER 2 DAYS Anaerobic Blood Culture - Preliminary NO GROWTH AFTER 2 DAYS Med Orders - Current: Current Medications Acetaminophen (Tylenol) 650 mg PO Q4H PRN PRN Reason: Pain (Mild 1-3)/fever Last Admin: 02/18/18 08:17 Dose: 650 mg Docusate Sodium (Colace) 100 mg PO DAILY PRN PRN Reason: Constipation Last Admin: 02/18/18 20:25 Dose: 100 mg Enoxaparin Sodium (Lovenox) 40 mg SUBCUT Q24H [facility] Last Admin: 02/19/18 09:13 Dose: 40 mg Sodium Chloride (Normal Saline) 1,000 mls @ 150 mls/hr IV ASDIRECTED JENNIFER Last Admin: 02/19/18 10:48 Dose: 150 mls/hr Levofloxacin/Dextrose 750 mg/ (Premix) 150 mls @ 100 mls/hr IV Q24H [facility] Last Admin: 02/18/18 20:15 Dose: 100 mls/hr Nicotine Polacrilex (Nicorelief) 4 mg CHEW Q4H PRN PRN Reason: Other Last Admin: 02/19/18 09:44 Dose: 4 mg Ondansetron HCl (Zofran) 4 mg IVPUSH Q4H PRN PRN Reason: Nausea/Vomiting Last Admin: 02/18/18 08:29 Dose: 4 mg Oxycodone HCl (Oxycodone) 5 mg PO Q6H PRN PRN Reason: Pain (severe 7-10) Last Admin: 02/19/18 08:08 Dose: 5 mg Sodium Chloride (Saline Flush) 10 ml FLUSH ASDIRECTED PRN PRN Reason: Keep Vein Open Sodium Chloride (Saline Flush) 2.5 ml FLUSH ASDIRECTED PRN PRN Reason: Keep Vein Open Last Admin: 02/17/18 14:57 Dose: 2.5 ml Discontinued Medications Acetaminophen (Tylenol) 650 mg RECTAL NOW ONE Stop: 02/16/18 19:46 Last Admin: 02/16/18 20:13 Dose: 650 mg Diphenhydramine HCl (Benadryl) 50 mg IVPUSH ONETIME ONE Stop: 02/16/18 21:45 Last Admin: 02/16/18 21:51 Dose: 50 mg Sodium Chloride (Normal Saline) 1,000 mls @ 999 mls/hr IV STAT ONE Stop: 02/16/18 20:45 Last Admin: 02/16/18 20:21 Dose: 999 mls/hr Levofloxacin/Dextrose 500 mg/ (Premix) 100 mls @ 100 mls/hr IV ONETIME ONE Stop: 02/16/18 20:45 Last Admin: 02/16/18 20:23 Dose: 100 mls/hr Potassium Chloride 20 meq/ (Sodium Chloride) 260 mls @ 130 mls/hr IV ASDIRECTED [facility] Last Admin: 02/17/18 00:48 Dose: 130 mls/hr Levofloxacin/Dextrose 750 mg/ (Premix) 150 mls @ 100 mls/hr IV Q24H [facility] Last Admin: 02/17/18 11:44 Dose: Not Given Influenza Virus Vaccine (Pharmacy To Dose - Influenza Vaccine) 1 each IM ONETIME ONE Stop: 02/17/18 04:04 Iopamidol (Isovue Multipack-370 (76%)) 100 ml IVPUSH ONETIME STA Stop: 02/17/18 11:52 Last Admin: 02/17/18 12:03 Dose: 100 ml Ketorolac Tromethamine (Toradol) 30 mg IVPUSH ONETIME ONE Stop: 02/16/18 19:46 Last Admin: 02/16/18 20:25 Dose: 30 mg Lorazepam (Ativan) 1 mg IVPUSH ONETIME ONE Stop: 02/16/18 21:00 Last Admin: 02/16/18 21:08 Dose: 1 mg Metoclopramide HCl (Reglan) 10 mg IV ONETIME ONE Stop: 02/16/18 21:45 Last Admin: 02/16/18 21:53 Dose: 10 mg Morphine Sulfate (Morphine) 4 mg IVPUSH ONETIME ONE Stop: 02/16/18 19:47 Last Admin: 02/16/18 20:26 Dose: 4 mg Morphine Sulfate (Morphine) 4 mg IVPUSH ONETIME ONE Stop: 02/16/18 20:57 Last Admin: 02/16/18 21:06 Dose: 4 mg Morphine Sulfate (Morphine) 2 mg IVPUSH Q4H PRN PRN Reason: Pain Last Admin: 02/18/18 07:48 Dose: 2 mg Nicotine (Habitrol) 14 mg TRDERM Q24H [facility] Last Admin: 02/17/18 18:11 Dose: 14 mg Nicotine Polacrilex (Nicorelief) 2 mg CHEW Q2H PRN PRN Reason: Other Ondansetron HCl (Zofran) 4 mg IVPUSH ONETIME ONE Stop: 02/16/18 19:46 Last Admin: 02/16/18 20:24 Dose: 4 mg Ondansetron HCl (Zofran) 4 mg IVPUSH ONETIME ONE Stop: 02/16/18 21:01 Last Admin: 02/16/18 21:04 Dose: 4 mg Potassium Chloride (Klor-Con M20) 40 meq PO ONETIME ONE Stop: 02/18/18 07:31 Last Admin: 02/18/18 08:17 Dose: 40 meq Potassium Chloride (Klor-Con M20) Confirm Administered Dose 40 meq .ROUTE .STK- MED ONE Stop: 02/18/18 09:18 Last Admin: 02/18/18 10:52 Dose: Not Given Potassium Chloride (Klor-Con M20) 40 meq PO ONETIME ONE Stop: 02/18/18 11:17 Last Admin: 02/18/18 11:40 Dose: Not Given <Guru Henson - Last Filed: 02/19/18 18:57> - Patient Data Vitals - Most Recent: Last Vital Signs Temp 36.6 C 02/19/18 08:00 Pulse 84 02/19/18 08:00 Resp 18 02/19/18 08:00 BP 135/85 02/19/18 08:00 Pulse Ox 99 02/19/18 08:00 I&O - Last 24 hours: Intake & Output 02/19/18 02/19/18 02/19/18 06:59 14:59 22:59 Intake Total 2736 1299 Output Total 2300 Balance 436 1299 Lab Results - Last 24 hrs: Laboratory Results - last 24 hr 02/19/18 02/19/18 Range/Units 06:01 06:01 WBC 8.30 (4.0-11.0) K/uL RBC 3.10 L (4.30-5.90) M/uL Hgb 9.3 L (12.0-16.0) g/dL Hct 27.2 L (36.0-46.0) % MCV 87.7 (80.0-98.0) fL MCH 30.0 (27.0-32.0) pg MCHC 34.2 (31.0-37.0) g/dL RDW Std Deviation 44.9 (28.0-62.0) fl RDW Coeff of Candice 14 (11.0-15.0) % Plt Count 332 (150-400) K/uL MPV 10.50 (7.40-12.00) fL Add Manual Diff YES Neutrophils % (Manual) 46 L (48.0-80.0) % Band Neutrophils % 7 % Lymphocytes % (Manual) 40 (16.0-40.0) % Monocytes % (Manual) 7 (0.0-15.0) % Nucleated RBC % 0.0 /100WBC Absolute Seg Neuts 3.8 (1.4-5.7) Band Neutrophils # 0.6 Lymphocytes # (Manual) 3.3 H (0.6-2.4) Monocytes # (Manual) 0.6 (0.0-0.8) Basophils # (Manual) 0.2 H (0.0-0.1) Nucleated RBCs # 0 K/uL Sodium 138 (136-145) mmol/L Potassium 4.1 (3.5-5.1) mmol/L Chloride 107 (98-107) mmol/L Carbon Dioxide 26.3 (21.0-32.0) mmol/L BUN 4 L (7.0-18.0) mg/dL Creatinine 0.8 (0.6-1.0) mg/dL Est Cr Clr Drug Dosing 77.30 mL/min Estimated GFR (MDRD) > 60.0 ml/min Glucose 99 (74-106) mg/dL Calcium 8.6 (8.5-10.1) mg/dL SALIMA Results - Last 24 hrs: Microbiology 02/16/18 20:08 Urine Culture - Final Urine, Clean Catch No Growth 02/16/18 20:35 Aerobic Blood Culture - Preliminary Blood - Venous - Lab Draw NO GROWTH AFTER 2 DAYS Anaerobic Blood Culture - Preliminary NO GROWTH AFTER 2 DAYS 02/16/18 20:23 Aerobic Blood Culture - Preliminary Blood - Venous NO GROWTH AFTER 2 DAYS Anaerobic Blood Culture - Preliminary NO GROWTH AFTER 2 DAYS Med Orders - Current: Current Medications Discontinued Medications Acetaminophen (Tylenol) 650 mg RECTAL NOW ONE Stop: 02/16/18 19:46 Last Admin: 02/16/18 20:13 Dose: 650 mg Acetaminophen (Tylenol) 650 mg PO Q4H PRN PRN Reason: Pain (Mild 1-3)/fever Last Admin: 02/18/18 08:17 Dose: 650 mg Diphenhydramine HCl (Benadryl) 50 mg IVPUSH ONETIME ONE Stop: 02/16/18 21:45 Last Admin: 02/16/18 21:51 Dose: 50 mg Docusate Sodium (Colace) 100 mg PO DAILY PRN PRN Reason: Constipation Last Admin: 02/18/18 20:25 Dose: 100 mg Enoxaparin Sodium (Lovenox) 40 mg SUBCUT Q24H [facility] Last Admin: 02/19/18 09:13 Dose: 40 mg Sodium Chloride (Normal Saline) 1,000 mls @ 999 mls/hr IV STAT ONE Stop: 02/16/18 20:45 Last Admin: 02/16/18 20:21 Dose: 999 mls/hr Levofloxacin/Dextrose 500 mg/ (Premix) 100 mls @ 100 mls/hr IV ONETIME ONE Stop: 02/16/18 20:45 Last Admin: 02/16/18 20:23 Dose: 100 mls/hr Potassium Chloride 20 meq/ (Sodium Chloride) 260 mls @ 130 mls/hr IV ASDIRECTED [facility] Last Admin: 02/17/18 00:48 Dose: 130 mls/hr Sodium Chloride (Normal Saline) 1,000 mls @ 150 mls/hr IV ASDIRECTED [facility] Last Admin: 02/19/18 10:48 Dose: 150 mls/hr Levofloxacin/Dextrose 750 mg/ (Premix) 150 mls @ 100 mls/hr IV Q24H [facility] Last Admin: 02/17/18 11:44 Dose: Not Given Levofloxacin/Dextrose 750 mg/ (Premix) 150 mls @ 100 mls/hr IV Q24H [facility] Last Admin: 02/18/18 20:15 Dose: 100 mls/hr Influenza Virus Vaccine (Pharmacy To Dose - Influenza Vaccine) 1 each IM ONETIME ONE Stop: 02/17/18 04:04 Iopamidol (Isovue Multipack-370 (76%)) 100 ml IVPUSH ONETIME STA Stop: 02/17/18 11:52 Last Admin: 02/17/18 12:03 Dose: 100 ml Ketorolac Tromethamine (Toradol) 30 mg IVPUSH ONETIME ONE Stop: 02/16/18 19:46 Last Admin: 02/16/18 20:25 Dose: 30 mg Lorazepam (Ativan) 1 mg IVPUSH ONETIME ONE Stop: 02/16/18 21:00 Last Admin: 02/16/18 21:08 Dose: 1 mg Metoclopramide HCl (Reglan) 10 mg IV ONETIME ONE Stop: 02/16/18 21:45 Last Admin: 02/16/18 21:53 Dose: 10 mg Morphine Sulfate (Morphine) 4 mg IVPUSH ONETIME ONE Stop: 02/16/18 19:47 Last Admin: 02/16/18 20:26 Dose: 4 mg Morphine Sulfate (Morphine) 4 mg IVPUSH ONETIME ONE Stop: 02/16/18 20:57 Last Admin: 02/16/18 21:06 Dose: 4 mg Morphine Sulfate (Morphine) 2 mg IVPUSH Q4H PRN PRN Reason: Pain Last Admin: 02/18/18 07:48 Dose: 2 mg Nicotine (Habitrol) 14 mg TRDERM Q24H [facility] Last Admin: 02/17/18 18:11 Dose: 14 mg Nicotine Polacrilex (Nicorelief) 2 mg CHEW Q2H PRN PRN Reason: Other Nicotine Polacrilex (Nicorelief) 4 mg CHEW Q4H PRN PRN Reason: Other Last Admin: 02/19/18 09:44 Dose: 4 mg Ondansetron HCl (Zofran) 4 mg IVPUSH ONETIME ONE Stop: 02/16/18 19:46 Last Admin: 02/16/18 20:24 Dose: 4 mg Ondansetron HCl (Zofran) 4 mg IVPUSH ONETIME ONE Stop: 02/16/18 21:01 Last Admin: 02/16/18 21:04 Dose: 4 mg Ondansetron HCl (Zofran) 4 mg IVPUSH Q4H PRN PRN Reason: Nausea/Vomiting Last Admin: 02/18/18 08:29 Dose: 4 mg Oxycodone HCl (Oxycodone) 5 mg PO Q6H PRN PRN Reason: Pain (severe 7-10) Last Admin: 02/19/18 08:08 Dose: 5 mg Potassium Chloride (Klor-Con M20) 40 meq PO ONETIME ONE Stop: 02/18/18 07:31 Last Admin: 02/18/18 08:17 Dose: 40 meq Potassium Chloride (Klor-Con M20) Confirm Administered Dose 40 meq .ROUTE .STK- MED ONE Stop: 02/18/18 09:18 Last Admin: 02/18/18 10:52 Dose: Not Given Potassium Chloride (Klor-Con M20) 40 meq PO ONETIME ONE Stop: 02/18/18 11:17 Last Admin: 02/18/18 11:40 Dose: Not Given Sodium Chloride (Saline Flush) 10 ml FLUSH ASDIRECTED PRN PRN Reason: Keep Vein Open Sodium Chloride (Saline Flush) 2.5 ml FLUSH ASDIRECTED PRN PRN Reason: Keep Vein Open Last Admin: 02/17/18 14:57 Dose: 2.5 ml - Free Text/Narrative Note: I have examined the patient. I have discussed findings and treatment plan with the resident. I agree with the assessment and plan in the following resident's note.
== END 2018-02-19 13:00 | disposition home or self-care (01) ==
LOC: MW.ED 18:59 → MW.MS 21:44
PROVIDERS: ADMIT Internal Medicine; ATTEND Internal Medicine
DX: N12 Tubulo-interstitial nephritis, not specified as acute or chronic (principal); E87.6 Hypokalemia; F17.210 Nicotine dependence, cigarettes, uncomplicated; H54.8 Legal blindness, as defined in USA; E03.9 Hypothyroidism, unspecified
CPT/HCPCS: 36415; 74178; 80048; 80053; 80305; 81001; 81025; 83605; 83690; 83735; 85025; 87040; 87086; 96361; 96365; 96366; 96372; 96375; 96376; 99284; A9270; G0378; J1200; J1650; J1885; J1956; J2060; J2270; J2405; J2765; J3480; J7040; J7050; Q9967